=== PATIENT | male | born 1940 | race Two or more races ===

== ENCOUNTER 2016-10-12 17:14 | Emergency (ER) | payer BC ==
--- NOTE | 2016-10-12 17:26 | ER Document Report ---
ED Medical Screen (RME) - General Stated Complaint: PSYCH EVAL Time seen by provider: 17:24 Mode of Arrival: Medic Information source: Patient Notes: 76-year-old male presents to ED for psych eval. His is being treated for cancer and she told him that she was not going to live very much longer and he has started having a nervous breakdown. His and have not been together for 50 years he has not voicing thoughts of suicide. Daughter states that he is very emotional and keeps asking what is going on he doesn't remember what's going on. He does state that he has no thoughts of hurting himself or anyone else. I have greeted and performed a rapid initial assessment of this patient. A comprehensive ED assessment and evaluation of the patient, analysis of test results and completion of medical decision making process will be conducted by an additional ED providers. TRAVEL OUTSIDE OF THE [place] IN LAST 30 DAYS: No - Related Data Allergies/Adverse Reactions: No Known Allergies Allergy (Verified 10/12/16 17:28) Past Medical History - Past Medical History Cardiac Medical History: Denies: Hx Coronary Artery Disease, Hx Heart Attack, Hx Hypertension Pulmonary Medical History: Denies: Hx Asthma, Hx Bronchitis, Hx COPD, Hx Pneumonia Neurological Medical History: Denies: Hx Cerebrovascular Accident, Hx Seizures Musculoskeltal Medical History: Denies Hx Arthritis - Immunizations Hx Diphtheria, Pertussis, Tetanus Vaccination: No Physical Exam - Vital signs Vitals: Temp Pulse Resp BP Pulse Ox 97.6 F 80 24 H 176/101 H 100 10/12/16 17:32 10/12/16 17:32 10/12/16 17:32 10/12/16 17:32 10/12/16 17:32 Course - Vital Signs Vital signs: Temp Pulse Resp BP Pulse Ox 97.6 F 80 24 H 176/101 H 100 10/12/16 17:32 10/12/16 17:32 10/12/16 17:32 10/12/16 17:32 10/12/16 17:32
--- NOTE | 2016-10-12 18:31 | EKG REPORT ---
SEVERITY:- NORMAL ECG - SINUS RHYTHM : Confirmed by: Wilfredo Blackwell MD 12-Oct-2016 18:31:28
[2016-10-12] MEDS ORDERED: LORAZEPAM INJ 2 MG/1 ML VIAL IV ONE (18:35)
--- NOTE | 2016-10-12 18:48 | ER Document Report ---
ED General - General Chief Complaint: Anxiety Stated Complaint: PSYCH EVAL Mode of Arrival: Medic Notes: Patient is a 76-year-old male with past medical history of hypertension and GERD who presents with confusion. Patient apparently had a panic attack per family although he does not recall these events. Patient was found to be hyperventilating, stating he was confused, crying and difficult to redirect. EMS was contacted and brought the patient here to the emergency department. Family denies a history of similar symptoms in the past. They note that he still seems to ask the same questions over and over and seems quite confused. This event apparently started shortly after his told him that she did not have long to live secondary to breast cancer. Nothing is noted to improve or worsen the patient's symptoms. He has not had any focal weakness, numbness, vomiting, chest pain or shortness of breath. No fever. No recent infectious symptoms. TRAVEL OUTSIDE OF THE [place] IN LAST 30 DAYS: No - Related Data Allergies/Adverse Reactions: No Known Allergies Allergy (Verified 10/12/16 17:28) Home Medications: Current Home Medications Amlodipine Besylate 5 mg PO DAILY 10/12/16 [History] Esomeprazole Mag Trihydrate [Nexium] 1 tab PO DAILY 10/12/16 [History] Meloxicam [Mobic 7.5 Mg Tablet] 7.5 mg PO BID 10/12/16 [History] Past Medical History - General Information source: Patient - Social History Smoking Status: Never Smoker Chew tobacco use (# tins/day): No Frequency of alcohol use: None Drug Abuse: None Lives with: Spouse/Significant other Family History: Reviewed & Not Pertinent Patient has suicidal ideation: No Patient has homicidal ideation: No - Past Medical History Cardiac Medical History: Reports: Hx Hypertension Denies: Hx Coronary Artery Disease, Hx Heart Attack Pulmonary Medical History: Denies: Hx Asthma, Hx Bronchitis, Hx COPD, Hx Pneumonia Neurological Medical History: Denies: Hx Cerebrovascular Accident, Hx Seizures Renal/ Medical History: Denies: Hx Peritoneal Dialysis GI Medical History: Reports: Hx Gastroesophageal Reflux Disease Musculoskeltal Medical History: Denies Hx Arthritis Past Surgical History: Reports: Hx Appendectomy - Immunizations Hx Diphtheria, Pertussis, Tetanus Vaccination: No Review of Systems - Review of Systems Notes: Constitutional: Negative for fever. HENT: Negative for sore throat. Eyes: Negative for visual changes. Cardiovascular: Negative for chest pain. Respiratory: Negative for shortness of breath. Gastrointestinal: Negative for abdominal pain, vomiting or diarrhea. Genitourinary: Negative for dysuria. Musculoskeletal: Negative for back pain. Skin: Negative for rash. Neurological: Negative for headaches, weakness or numbness. 10 point ROS negative except as marked above and in HPI. Physical Exam - Vital signs Vitals: Temp Pulse Resp BP Pulse Ox 97.6 F 80 24 H 176/101 H 100 10/12/16 17:32 10/12/16 17:32 10/12/16 17:32 10/12/16 17:32 10/12/16 17:32 Interpretation: Hypertensive, Tachypneic Notes: PHYSICAL EXAMINATION: GENERAL: Well-appearing, well-nourished and in no acute distress. HEAD: Atraumatic, normocephalic. EYES: Pupils equal round and reactive to light, extraocular movements intact, sclera anicteric, conjunctiva are normal. ENT: nares patent, oropharynx clear without exudates. Moist mucous membranes. NECK: Normal range of motion, supple without lymphadenopathy LUNGS: Breath sounds clear to auscultation bilaterally and equal. No wheezes rales or rhonchi. HEART: Regular rate and rhythm without murmurs ABDOMEN: Soft, nontender, normoactive bowel sounds. No guarding, no rebound. No masses appreciated. EXTREMITIES: Normal range of motion, no pitting or edema. No cyanosis. NEUROLOGICAL: No focal neurological deficits. Moves all extremities spontaneously and on command. PSYCH: Tremulous, appears highly anxious. Asking repetitive questions. SKIN: Warm, Dry, normal turgor, no rashes or lesions noted. Course - Re-evaluation Re-evalutation: 10/12/16 18:47 Patient presents with history most consistent with an acute panic attack. Symptoms as described by the patient and his daughter are consistent with this diagnosis. There was a clear trigger for tonight's episode. Symptoms did resolve after receiving medical therapy here in the emergency department. Vitals otherwise within normal limits. I do not suspect an acute pulmonary embolus, ACS, pneumothorax, or any other acute left threatening pathology based on history and exam. Will trial low-dose of Ativan reassess 1907-patient continues to be very confused, does not recall talking to me earlier. He no longer appears anxious. This is diverging from what I would expect if this was a anxiety attack although this could be an adjustment disorder versus less likely at a primary medical issue. Will proceed with labs , CT the head and reassess. Decided that patient will require psychiatric evaluation - Vital Signs Vital signs: Temp Pulse Resp BP Pulse Ox 98.3 F 80 16 128/78 H 98 10/12/16 20:39 10/12/16 20:39 10/12/16 20:39 10/12/16 20:39 10/12/16 20:39 - Laboratory Result Diagrams: 10/12/16 18:03 10/12/16 18:03 Laboratory results interpreted by me: 10/12/16 10/12/16 18:03 18:03 Seg Neutrophils % 78.2 H Lymphocytes % 11.2 L Salicylates < 1.0 L Acetaminophen < 10 L - Diagnostic Test Radiology reviewed: Image reviewed, Reports reviewed Radiology results interpreted by me: 10/13/16 03:04 CT head: No acute intracranial bleed or mass - EKG Interpretation by Me Additional EKG results interpreted by me: 10/13/16 03:05 Normal sinus rhythm. Rate 76. No ST elevations or depressions. QTC is 459. Discharge - Discharge Clinical Impression: Confusion, Panic attack Condition: Fair Disposition: PSYCH HOSP/UNIT Instructions: Anxiety (OM)
[2016-10-12 19:33] LABS: APPEARANCE,URINE SLIGHTLY-CLOUDY; BILIRUBIN,URINE NEGATIVE (NEGATIVE); GLUCOSE, URINE NEGATIVE (NEGATIVE); KETONES,URINE NEGATIVE (NEGATIVE); LEUKOCYTE ESTERASE,URINE NEGATIVE (NEGATIVE); NITRITE,URINE NEGATIVE (NEGATIVE); PROTEIN,URINE NEGATIVE (NEGATIVE); URINE SPECIFIC GRAVITY 1.009; UROBILINOGEN,URINE NEGATIVE mg/dL (<2.0)
[2016-10-12 19:45] LABS: ABSOLUTE BASOPHILS # (AUTO) 0.1 10^3/uL (0.0-0.2); ABSOLUTE EOSINOPHILS # (AUTO) 0.1 10^3/uL (0.0-0.6); ABSOLUTE MONOCYTES (AUTO) 0.7 10^3/uL (0.1-1.4); ABSOLUTE NEUT (AUTO) 6.7 10^3/uL (1.7-8.2); BASOPHILS % (AUTO) 1.2 % (0-2); EOSINOPHILS % (AUTO) 1.3 % (0-6); HEMATOCRIT 44.8 % (37.9-51.0); HEMOGLOBIN 15.4 g/dL (13.5-17.0); HGB HCT DIFFERENCE 1.4; LYMPHOCYTES % (AUTO) 11.2 % (13-45); MEAN CORPUSCULAR HEMOGLOBIN 31.4 pg (27.0-33.4); MEAN CORPUSCULAR HGB CONC 34.4 g/dL (32.0-36.0); MEAN CORPUSCULAR VOLUME 91 fl (80-97); MONOCYTES % (AUTO) 8.1 % (3-13); RED BLOOD COUNT 4.91 10^6/uL (4.35-5.55); RED CELL DISTRIBUTION WIDTH 13.4 % (11.5-14.0); SEGMENTED NEUTROPHILS % (AUTO) 78.2 % (42-78); WHITE BLOOD COUNT 8.5 10^3/uL (4.0-10.5)
[2016-10-12 19:47] LABS: ALANINE AMINOTRANSFERASE 40 U/L (21-72); ALBUMIN 4.3 g/dL (3.5-5.0); ALCOHOL < 10 mg/dL (NONE DETECTED); ALKALINE PHOSPHATASE 71 U/L (38-126); ANION GAP 14 (5-19); ASPARTATE AMINO TRANSFERASE 30 U/L (17-59); BILIRUBIN,DIRECT 0.3 mg/dL (0.0-0.4); BILIRUBIN,TOTAL 0.7 mg/dL (0.2-1.3); BLOOD UREA NITROGEN 18 mg/dL (7-20); CALCIUM 9.8 mg/dL (8.4-10.2); CARBON DIOXIDE 24 mmol/L (22-30); CHLORIDE 103 mmol/L (98-107); CREATININE RESULT 0.89 mg/dL (0.52-1.25); GLUCOSE 110 mg/dL (75-110); POTASSIUM 4.4 mmol/L (3.6-5.0); SODIUM 140.6 mmol/L (137-145); TOTAL PROTEIN 7.3 g/dL (6.3-8.2)
[2016-10-12 19:51] LABS: URINE BARBITURATES SCREEN NEGATIVE; URINE METHADONE SCREEN NEGATIVE; URINE OPIATES LOW NEGATIVE; URINE PHENCYCLIDINE SCREEN NEGATIVE
[2016-10-13] MEDS ORDERED: AMLODIPINE BESYLATE 5 MG TABLET PO ONE (09:53)
--- NOTE | 2016-10-13 09:55 | ER Document Report ---
Doctor's Note Notes: 10/13/16 09:50 Rounds: Chart reviewed and patient evaluated. Speaks [place]. Says he is feeling well now. Daughter says he still doesn't have good memory of what has happened. Patient has had a very thorough workup including a wide variety of blood work and urine testing as well as a CT of his head and all of these results are essentially normal. Vital signs are all normal. Patient appears to be medically stable for transfer or discharge. Mental health has evaluated the patient deals he can be discharged today. Yasir Hernández M.D.
--- NOTE | 2016-10-13 10:03 | PSYCHOLOGICAL NOTE ---
Psych Note - Psych Note Psych Note: Patient is a 76 year old male who presented yesterday after a possible panic attack, secondary to being informed by his that she has terminal breast cancer. Patient was held for observation and further evaluation due to continued presentation of disoriented/confusion. Patient is Yakut speaking only and was evaluated this morning without the assistance of MANUEL, per the patient's request his daughter translated. Patient this morning states he was upset because he and his were having a discussion about katelyn. He states his has been dealing with breast cancer and required surgeries/treatments and she expressed to him that she is questioning her katelyn in God. Patient states he is deeply mandaen and was shocked to hear her statements. Patient states he prefers to discharge and possibly follow up with as therapist to process his emotions. Patient denies SI or any prior episodes similar to the current. Patient's daughter reports no concerns for patient's safety and states the family prefers for him to follow up with an outpatient provider. 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 Daughter states her father has never had any episodes similar to this and is otherwise a healthy individual. Patient is A&O. Mood is euthymic with normal/smiling affect. Patient denies suicidal/homicidal ideations, intent, plan, or means. Patient denies A/V H; delusions not noted. Thought processes were guarded. Conversational speech was WNL. Intellectual abilities were estimated within average range. Attention and focus were good. Insight, judgment, and impulse control were fair. Diagnosis: deferred Patient is psychiatrically cleared for discharge to follow up with an outpatient provider, likely [facility] where it was confirmed there are translative devices available. Patient denies SI/HI. Patient reports he is agreeable to follow up with outpatient services. He denies any prior episodes, or even any prior MH treatment. Patient's head CT demonstrates areas of low density in the white matter most likely related to age related microvascular changes. Patient is recommended to follow up with a neurologist as well as avoid any benzodiazepine medication, which are known to cause increased confusion and even agitation in patient with such microvascular changes. I consulted with Dr. Sepulveda in regards to the care and management of this patient.
[2016-10-13 10:15] VITALS: BP 128/78
== END 2016-10-13 10:15 | disposition home or self-care (01) ==
LOC: ER 17:14
DX: R41.0 Disorientation, unspecified (principal); F41.0 Panic disorder [episodic paroxysmal anxiety]; F41.9 Anxiety disorder, unspecified; I10 Essential (primary) hypertension; K21.9 Gastro-esophageal reflux disease without esophagitis; Z79.899 Other long term (current) drug therapy
CPT/HCPCS: 93005; 99285; 96374; 36415; 80307 ×4; 85025; 80053; 81001; 70450; 93010; J2060

== ENCOUNTER → 2017-05-24 | Outpatient (CLI) | payer BC ==
--- NOTE | 2017-05-24 23:44 | EKG REPORT ---
SEVERITY:- NORMAL ECG - SINUS RHYTHM : Confirmed by: Tuan Hadley 24-May-2017 23:43:45
== END ==
LOC: OD 16:35
PROVIDERS: ATTEND Family Medicine
DX: I10 Essential (primary) hypertension (principal)
CPT/HCPCS: 93005; 93010